=== PATIENT | female | born 1970 | race African-American/Black ===

== ENCOUNTER 2018-01-21 21:46 | Emergency (ER) | payer MEDICAID ==
[2018-01-21] MEDS: IBUPROFEN 600 MG TAB PO (23:59)
== END 2018-01-22 01:29 | disposition home or self-care (01) ==
LOC: FTE 01-22 01:29
DX: S89.92XA Unspecified injury of left lower leg, initial encounter (principal); X58.XXXA Exposure to other specified factors, initial encounter; Y92.9 Unspecified place or not applicable
CPT/HCPCS: 29515; 73562; 99283-25